=== PATIENT | female | born 1980 | race Caucasian/White ===

== ENCOUNTER 2017-02-22 07:36 | Emergency (ER) | payer OTHER ==
[2017-02-22 07:55] VITALS: PULSE 85
[2017-02-22] MEDS ORDERED: Sodium Chloride 0.9% 1,000 ML IV ONE (08:50)
--- NOTE | 2017-02-22 08:58 | C.PDOC ---
History Of Present Illness 36 y/o female presents to the ED s/p episode of dizziness. Pt states she woke up , showered and suddenly felt dizzy, like room spinning and fell down. Pt sat on floor for 10 minutes waiting for it to pass and called EMS. Symptoms have significantly improved but still has some dizziness. Pt denies any injury from fall, chest pain, SOB, abdominal pain, vaginal bleeding, headache, nausea, vomiting or any other complaints. Time Seen by Provider: 02/22/17 08:46 Chief Complaint (Nursing): Dizziness/Lightheaded History Per: Patient History/Exam Limitations: no limitations Onset/Duration Of Symptoms: Mins Current Symptoms Are (Timing): Better Activity At Onset Of Symptoms: Standing Associated Symptoms Preceding Syncopal Episode: No Predromal Symptoms (Sudden Onset) Seizure Or Post-ictal Symptoms: None Fall Associated With With Symptoms: Yes, No Injury As Result Of Fall Severity: Mild Recent travel outside of the [place]: No Past Medical History Reviewed: Historical Data, Nursing Documentation, Vital Signs Vital Signs: Last Vital Signs Temp 98.8 F 02/22/17 11:55 Pulse 85 02/22/17 11:55 Resp 16 02/22/17 11:55 BP 126/86 02/22/17 11:55 Pulse Ox 99 02/22/17 11:55 - Medical History PMH: Anxiety, Asthma, Bronchitis Family History: States: Unknown Family Hx - Social History Hx Tobacco Use: No Hx Alcohol Use: No Hx Substance Use: No - Immunization History Hx Tetanus Toxoid Vaccination: Yes Hx Influenza Vaccination: Yes Hx Pneumococcal Vaccination: No Review Of Systems Cardiovascular: Negative for: Chest Pain Respiratory: Negative for: Shortness of Breath Gastrointestinal: Negative for: Nausea, Vomiting, Abdominal Pain Genitourinary: Negative for: Vaginal Bleeding Neurological: Positive for: Dizziness. Negative for: Headache Physical Exam - Physical Exam Appears: Non-toxic, No Acute Distress Skin: Warm, Dry, No Rash Head: Atraumatic, Normacephalic Eye(s): bilateral: PERRL, EOMI Neck: Normal, Normal ROM, No Midline Cervical Tenderness, Supple Chest: Symmetrical, No Tenderness Cardiovascular: Rhythm Regular, No Murmur Respiratory: Normal Breath Sounds, No Rales, No Rhonchi, No Wheezing Gastrointestinal/Abdominal: Normal Exam, Soft, No Tenderness Back: Normal Inspection, No Vertebral Tenderness Extremity: Normal ROM Extremity: Bilateral: Atraumatic Neurological/Psych: Oriented x3, Normal Speech, Normal Cognition, Normal Cranial Nerves (2-12 grossly intact), Normal Motor, Normal Sensation ED Course And Treatment - Laboratory Results Result Diagrams: 02/22/17 09:30 02/22/17 09:30 O2 Sat by Pulse Oximetry: 98 (room air) Pulse Ox Interpretation: Normal Medical Decision Making Medical Decision Making: Plan: EKG, labs, UA Patient feeling much better. Will d/c with PMD follow up. Disposition Counseled Patient/Family Regarding: Studies Performed, Diagnosis - Disposition Disposition: HOME/ ROUTINE Disposition Time: 12:32 Condition: IMPROVED Instructions: Vertigo (ED) Forms: General Discharge Instructions, Work Excuse - POA Present On Arrival: None - Clinical Impression Clinical Impression: Near syncope - Scribe Statement The provider has reviewed the documentation as recorded by the Kathrine Barnard Provider Attestation: All medical record entries made by the Kathrine were at my direction and personally dictated by me. I have reviewed the chart and agree that the record accurately reflects my personal performance of the history, physical exam, medical decision making, and the department course for this patient. I have also personally directed, reviewed, and agree with the discharge instructions and disposition.
[2017-02-22 09:30] LABS: RBC URINE < 1 /hpf (0-3); URINE BILIRUBIN NEGATIVE (NEGATIVE); URINE BLOOD NEGATIVE (NEGATIVE); URINE COLOR Yellow (YELLOW); URINE GLUCOSE (UA) NORMAL (Normal); URINE KETONE NEGATIVE (NEGATIVE); URINE LEUKOCYTE ESTERASE NEG Leu/uL (Negative); URINE PROTEIN NEGATIVE (NEGATIVE); URINE UROBILINOGEN NORMAL mg/dL (0.2-1.0); WBC URINE 1 /hpf (0-5)
[2017-02-22 09:36] LABS: BASO % 0.5 % (0.0-2.0); EOS # 0.2 K/uL (0.0-0.7); HEMATOCRIT 40.8 % (34.0-47.0); LYMPH # 1.3 K/uL (1.0-4.3); MEAN CELL VOLUME 81.7 fL (81.0-99.0); MEAN CORPUSCULAR HEMOGLOBIN 26.8 pg (27.0-31.0); MEAN CORPUSCULAR HGB CONC 32.9 g/dL (33.0-37.0); MEAN PLATELET VOLUME 7.3 fL (7.2-11.7); MONO # 0.4 K/uL (0.0-0.8); MONO % 4.8 % (0.0-10.0); RED CELL DISTRIBUTION WIDTH 13.8 % (11.5-14.5); WHITE BLOOD COUNT 7.9 K/uL (4.8-10.8)
[2017-02-22] MEDS ORDERED: Sodium Chloride 0.9% 1,000 ML ONE (09:40)
[2017-02-22 10:30] LABS: CHLORIDE 102 mmol/L (98-107)
[2017-02-22 10:31] LABS: POTASSIUM 4.2 mmol/L (3.6-5.2); SODIUM 135 mmol/L (132-148)
[2017-02-22 10:33] LABS: ALB/GLOB RATIO 1.1 (1.0-2.1); AST/SGOT 24 U/L (14-36); BILIRUBIN,TOTAL 0.7 mg/dL (0.2-1.3); BLOOD UREA NITROGEN 12 mg/dL (7-17); CARBON DIOXIDE 23 mmol/L (22-30); GFR AFRICAN-AMERICAN > 60; TOTAL PROTEIN 8.1 g/dL (6.3-8.3)
[2017-02-22 10:34] LABS: ALKALINE PHOSPHATASE 63 U/L (38-126); ALT/SGPT 20 U/L (9-52); CALCIUM 8.5 mg/dl (8.6-10.4); GLUCOSE,RANDOM 90 mg/dL (65-105)
[2017-02-22 12:01] VITALS: BP 126/86; RESP 16; TEMP 98.8
[2017-02-22 12:34] VITALS: O2SAT 98
--- NOTE | 2017-02-25 13:03 | CARD ---
APPROVED REPORT EKG Measurement Heart [id number] <Conclusion> Normal sinus rhythm Normal ECG
== END 2017-02-22 13:09 | disposition home or self-care (01) ==
LOC: C.ER 07:36
DX: R55 Syncope and collapse (principal)
CPT/HCPCS: 80053; 80324; 80345; 80346; 80349; 80353; 80358; 80361; 81001; 82948; 83992; 84703; 85025; 96360; 99285; J7040

== ENCOUNTER 2017-12-02 11:11 | Emergency (ER) | payer OTHER ==
[2017-12-02 11:38] VITALS: BMI 30.4
[2017-12-02 11:44] VITALS: TEMP 98.1; O2SAT 100
[2017-12-02 13:44] LABS: HCG,QUALITATIVE URINE POSITIVE (NEGATIVE)
[2017-12-02 13:45] LABS: BASO % 0.4 % (0.0-2.0); EOS # 0.1 K/uL (0.0-0.7); EOS % 2.4 % (0.0-4.0); HEMOGLOBIN 11.7 g/dL (11.0-16.0); LYMPH # 1.5 K/uL (1.0-4.3); LYMPH % 24.9 % (20.0-40.0); MEAN CELL VOLUME 81.5 fL (81.0-99.0); MEAN CORPUSCULAR HEMOGLOBIN 27.8 pg (27.0-31.0); MEAN CORPUSCULAR HGB CONC 34.1 g/dL (33.0-37.0); MEAN PLATELET VOLUME 7.5 fL (7.2-11.7); MONO # 0.4 K/uL (0.0-0.8); MONO % 7.3 % (0.0-10.0); NEUT # 3.8 K/uL (1.8-7.0); RBC 4.22 Mil/uL (3.80-5.20); RED CELL DISTRIBUTION WIDTH 14.5 % (11.5-14.5); WHITE BLOOD COUNT 5.9 K/uL (4.8-10.8)
[2017-12-02 13:46] LABS: SQUAMOUS EPITHIAL 105 /hpf (0-5); URINE BACTERIA OCC (<OCC); URINE BILIRUBIN NEGATIVE (NEGATIVE); URINE BLOOD 3+ (NEGATIVE); URINE CLARITY Hazy (Clear); URINE COLOR Yellow (YELLOW); URINE GLUCOSE (UA) NORMAL (Normal); URINE LEUKOCYTE ESTERASE 3+ Leu/uL (Negative); URINE NITRATE NEGATIVE (NEGATIVE); URINE PROTEIN 1+ mg/dL (NEGATIVE)
--- NOTE | 2017-12-02 13:49 | C.PDOC ---
History Of Present Illness 37-year-old female, , presents to the emergency department with complaints of six day duration of vaginal bleeding and lower abdominal cramping, which is described as "contractions." Patient states her menstrual period was late this month, and she thinks she is experiencing a miscarriage. Denies nausea/vomiting , fevers, chills, shortness of breath or chest pain. No other complaints at this time. Time Seen by Provider: 12/02/17 12:31 Chief Complaint (Nursing): Abdominal Pain History Per: Patient History/Exam Limitations: no limitations Onset/Duration Of Symptoms: Days Current Symptoms Are (Timing): Still Present Severity: Moderate Past Medical History Reviewed: Historical Data, Nursing Documentation, Vital Signs Vital Signs: Last Vital Signs Temp 98.1 F 12/02/17 11:38 Pulse 82 12/02/17 17:35 Resp 16 12/02/17 17:35 BP 120/82 12/02/17 17:35 Pulse Ox 100 12/04/17 04:47 - Medical History PMH: Anxiety, Asthma, Bronchitis Denies: Migraine Family History: States: No Known Family Hx - Social History Hx Tobacco Use: No Hx Alcohol Use: No Hx Substance Use: No - Immunization History Hx Tetanus Toxoid Vaccination: Yes Hx Influenza Vaccination: Yes (2017) Hx Pneumococcal Vaccination: No Review Of Systems Except As Marked, All Systems Reviewed And Found Negative. Constitutional: Negative for: Fever, Chills Cardiovascular: Negative for: Chest Pain, Palpitations Respiratory: Negative for: Shortness of Breath Gastrointestinal: Positive for: Abdominal Pain. Negative for: Nausea, Vomiting Genitourinary: Positive for: Vaginal Bleeding. Negative for: Dysuria, Frequency , Vaginal Discharge Musculoskeletal: Negative for: Back Pain Physical Exam - Physical Exam Appears: Non-toxic, No Acute Distress Skin: Normal Color, Warm, Dry, No Rash Head: Atraumatic, Normacephalic Eye(s): bilateral: Normal Inspection, PERRL Nose: Normal Oral Mucosa: Moist Lips: Normal Appearing Neck: Normal ROM Chest: Symmetrical Cardiovascular: Rhythm Regular, No Murmur Respiratory: Normal Breath Sounds, No Accessory Muscle Use Gastrointestinal/Abdominal: Soft, Tenderness (Suprapubic, mild.), No Guarding, No Rebound Back: Normal Inspection, No CVA Tenderness Pelvic: Normal External Exam, Vaginal Bleeding (scant), No Vaginal Discharge, Other (Cervical os is closed) Extremity: Normal ROM Neurological/Psych: Oriented x3, Normal Speech, Normal Motor Gait: Steady ED Course And Treatment - Laboratory Results Result Diagrams: 12/02/17 13:25 12/02/17 13:39 O2 Sat by Pulse Oximetry: 100 (RA) Pulse Ox Interpretation: Normal Medical Decision Making Medical Decision Making: Plan: * Beta-HCG, CMP * CBC * UA * Reassess and Disposition The ultrasound shows no intrauterine products of conception. Patient was instructed the importance of returning in 2 days for repeat beta-hcg On re-exam, the patient reports improvement of symptoms. Lungs are CTA, heart is RRR, abdomen is sfot, non-tender and the patient is tolerating PO well. Ambulatory in the ED with steady gait. Follow up with the medical doctor within 1-2 days. Return if worsened. Disposition - Disposition Referrals: Nino Farah MD [Medical Doctor] - Disposition: HOME/ ROUTINE Disposition Time: 17:09 Condition: GOOD Additional Instructions: YOU NEED TO REPEAT THE BETA-HCG IN 2 DAYS WITHOUT FAIL. Follow up with the OBGYN within 1-2 days without fail, Return if worsened. Prescriptions: Nitrofurantoin Macrocrystals [Macrobid] 1 cap PO BID #14 cap Instructions: Threatened Miscarriage (DC) Forms: [employer] (Slovenian) - Clinical Impression Clinical Impression: Threatened - Scribe Statement The provider has reviewed the documentation as recorded by the Scribe (Aditya Cordero) All medical record entries made by the Scribe were at my direction and personally dictated by me. I have reviewed the chart and agree that the record accurately reflects my personal performance of the history, physical exam, medical decision making, and the department course for this patient. I have also personally directed, reviewed, and agree with the discharge instructions and disposition.
[2017-12-02 14:14] LABS: ALB/GLOB RATIO 1.1 (1.0-2.1); ALBUMIN 3.9 g/dL (3.5-5.0); ALT/SGPT 70 U/L (9-52); AST/SGOT 43 U/L (14-36); BLOOD UREA NITROGEN 9 mg/dL (7-17); CALCIUM 8.6 mg/dl (8.6-10.4); GFR AFRICAN-AMERICAN > 60; GFR NON-AFRICAN AMERICAN > 60
[2017-12-02 15:13] VITALS: RESP 16
--- NOTE | 2017-12-02 17:05 | US ---
HISTORY: Vaginal bleeding, abdominal pain. Menstrual status: LMP 10/30/2017. Beta HCG results: 111.19 units COMPARISON: 08/21/2016. TECHNIQUE: Transabdominal, transvaginal. Real -time technique with 2D, duplex and color Doppler. FINDINGS: UTERUS: Measures 4.5 x 5.4 x 9.7 cm. Normal in size and appearance. Location of fibroid and size: Lower uterine segment midline 1.8 x 2.7 x 2.3 ENDOMETRIUM: Measures 5.6 mm in diameter. Unremarkable. CERVIX: No cervical abnormality identified. Cervical length 3.86 cm RIGHT OVARY: Measures 3 x 2.4 x 2.8 cm. No solid mass. Normal flow. Cyst 1.2 x 1.4 cm. Some Rodriguez echogenic mass 1.4 x 1.4 cm. LEFT OVARY: Measures 1.7 x 3.5 by 2.4 cm. No solid mass. Normal flow. Complex cyst/mass 6.5 x 11.8 mm. Multiple subcentimeter follicles. FREE FLUID: Trace free fluid about the right adnexa. OTHER FINDINGS: None. IMPRESSION: No visible intrauterine gestational products of conception. Solitary uterine fibroid. Trace free fluid adjacent to the right ovary. Additional benign and/or incidental findings described above.
[2017-12-02 17:35] VITALS: BP 120/82; PULSE 82
== END 2017-12-02 17:35 | disposition home or self-care (01) ==
LOC: C.ER 11:11
DX: O20.0 Threatened abortion (principal); Z3A.00 Weeks of gestation of pregnancy not specified

== ENCOUNTER 2018-10-31 16:39 | Emergency (ER) | payer OTHER ==
[2018-10-31 16:40] VITALS: BMI 30.4
[2018-10-31 17:02] VITALS: PULSE 89
--- NOTE | 2018-10-31 18:19 | C.PDOC ---
History Of Present Illness 38 y/o female with a PMHx of anxiety and asthma presents to the ED complaining of dizziness for 2 weeks. Patient states symptoms began on 10/22. She then saw her PMD on 10/27, was diagnosed with strep throat, and started on Zithromax. Patient notes she is on day 5 of antibiotics. Today patient reports she felt so dizzy at work that she felt near syncopal. There was no LOC or syncope. Patient has been eating and drinking okay, although her throat still hurts and she felt nauseous today. No recent travel. Patient denies sensation of room spinning (contrary to stated complaint to nurse), states she feels woozy. Denies any associated abdominal pain, vomiting, fever, chills, headaches, diarrhea, or urinary symptoms. Patient states she is unsure of whether she might be . Time Seen by Provider: 10/31/18 17:47 Chief Complaint (Nursing): Dizziness/Lightheaded History Per: Patient History/Exam Limitations: no limitations Onset/Duration Of Symptoms: Days Current Symptoms Are (Timing): Still Present Past Medical History Reviewed: Historical Data, Nursing Documentation, Vital Signs Vital Signs: Last Vital Signs Temp 98 F 10/31/18 16:56 Pulse 89 10/31/18 16:56 Resp 18 10/31/18 16:56 BP 142/97 H 10/31/18 16:56 Pulse Ox 97 10/31/18 16:56 - Medical History PMH: Anxiety, Asthma, Bronchitis Denies: Migraine Other PMH: Endometriosis Other Surgeries: Tubal ligation, ovarian cyst removal Family History: States: No Known Family Hx - Social History Hx Tobacco Use: No Hx Alcohol Use: No Hx Substance Use: No - Immunization History Hx Tetanus Toxoid Vaccination: Yes Hx Influenza Vaccination: No Hx Pneumococcal Vaccination: No Review Of Systems Constitutional: Negative for: Fever, Chills ENT: Positive for: Throat Pain Cardiovascular: Negative for: Chest Pain Respiratory: Negative for: Shortness of Breath Gastrointestinal: Positive for: Nausea. Negative for: Vomiting, Abdominal Pain, Diarrhea Genitourinary: Negative for: Dysuria, Frequency Skin: Negative for: Rash Neurological: Positive for: Dizziness. Negative for: Weakness, Numbness, Change in Speech, Headache Physical Exam - Physical Exam Appears: Non-toxic, No Acute Distress Head: Atraumatic, Normacephalic Eye(s): bilateral: Normal Inspection (no nystagmus), PERRL, EOMI Nose: Normal Oral Mucosa: Dry (slightly) Throat: Normal, No Erythema, No Exudate Neck: Normal ROM, No Midline Cervical Tenderness, No Paracervical Tenderness, Supple Chest: Symmetrical Cardiovascular: Rhythm Regular, No Murmur Respiratory: Normal Breath Sounds, No Rales, No Rhonchi, No Wheezing Gastrointestinal/Abdominal: Soft, No Tenderness, No Distention Extremity: Bilateral: Atraumatic, Normal Color And Temperature, Normal ROM Pulses: Left Dorsalis Pedis: Normal, Right Dorsalis Pedis: Normal Neurological/Psych: Oriented x3, Normal Speech, Normal Cognition, Normal Cranial Nerves (2-12 intact), No Cerebellar Signs, Normal Motor, Normal Sensation, Other (Normal [id number] and [id number], no pronator drift) Gait: Steady ED Course And Treatment O2 Sat by Pulse Oximetry: 97 (RA) Pulse Ox Interpretation: Normal Medical Decision Making Medical Decision Making: Impression: Dizziness Plan: - Check orthostatics - Urinalysis and urine preg pending Progress/Updates: Orthostatics are negative. On reevaluation patient is resting comfortably on stretcher, using cell phone. Labs reviewed. UA is clear. Disposition Counseled Patient/Family Regarding: Studies Performed, Diagnosis, Need For Followup - Disposition Referrals: Nino Farah MD [Medical Doctor] - Disposition: HOME/ ROUTINE Disposition Time: 18:54 Condition: STABLE Additional Instructions: DENISSE ALANIZ, thank you for letting us take care of you today. Your provider was Brinda Reddy MD and you were treated for DIZZINESS/SYNCOPE. The emergency medical care you received today was directed at your acute symptoms. If you were prescribed any medication, please fill it and take as directed. It may take several days for your symptoms to resolve. Return to the Emergency Department if your symptoms worsen, do not improve, or if you have any other problems. Please contact your doctor in 1-2 days for a follow up appointment . Bring any paperwork you were given at discharge with you along with any medications you are taking to your follow up visit. Our treatment cannot replace ongoing medical care by a primary care provider outside of the emergency department. Thank you for allowing the [facility] team to be part of your care today. Instructions: Dizziness, Nonvertigo, (DC) Forms: [employer] (Kazakh), General Discharge Instructions - POA Present On Arrival: None - Clinical Impression Clinical Impression: Dizziness - Scribe Statement The provider has reviewed the documentation as recorded by the Scribe Janel Corado Provider Attestation: All medical record entries made by the Scribe were at my direction and personally dictated by me. I have reviewed the chart and agree that the record accurately reflects my personal performance of the history, physical exam, medical decision making, and the department course for this patient. I have also personally directed, reviewed, and agree with the discharge instructions and disposition.
[2018-10-31 18:51] LABS: SQUAMOUS EPITHIAL 6 /hpf (0-5); URINE BACTERIA RARE (<OCC); URINE BILIRUBIN NEGATIVE (NEGATIVE); URINE BLOOD NEGATIVE (NEGATIVE); URINE CLARITY Clear (Clear); URINE COLOR Yellow (YELLOW); URINE GLUCOSE (UA) NORMAL (Normal); URINE LEUKOCYTE ESTERASE NEG Leu/uL (Negative); URINE PROTEIN NEGATIVE (NEGATIVE)
[2018-10-31 19:11] VITALS: BP 136/90; RESP 20; TEMP 98.4; O2SAT 100
== END 2018-10-31 19:11 | disposition home or self-care (01) ==
LOC: C.ER 16:39
DX: R42 Dizziness and giddiness (principal)